=== PATIENT | female | born 1985 | race Caucasian/White ===

== ENCOUNTER 2017-05-06 07:57 | Emergency (ER) | payer OTHER ==
[2017-05-06] MEDS ORDERED: SODIUM CHLORIDE 0.9% 1,000 ML IV ONE (08:30)
[2017-05-06] MEDS ORDERED: ONDANSETRON 4 MG/2 ML VIAL IVP STA (08:30)
--- NOTE | 2017-05-06 08:33 | ED Physician Documentation ---
PD HPI NVD - Stated complaint Stated Complaint: DEHYDRATED/17WKS - Chief complaint Chief Complaint: Abd Pain - History obtained from History obtained from: Patient - History of Present Illness Timing - onset: How many days ago (2) Timing - details: Still present Associated symptoms: No: Fever, Abdominal pain, Dysuria, Vaginal bleeding Contributing factors: Sick contact (Son with similar symptoms earlier in the week.) Similar symptoms before: Has not had sx before - Treatment prior to arrival Treatment prior to arrival: Vomits after taking oral Zofran. - Additonal information Additional information: The patient is a 32-year-old female currently at 17 weeks gestation, who presents with vomiting of 2 days duration. She last vomited about 2 hours prior to arrival. She is concerned about dehydration because she has noticed decreased urine output. She denies fever, cough, shortness of breath, abdominal pain, diarrhea, or dysuria. She denies vaginal bleeding. She denies history of similar symptoms in the past. Her son was sick with similar symptoms earlier in the week. Review of Systems Constitutional: denies: Fever Ears: denies: Tinnitus/ringing Nose: denies: Congestion Throat: denies: Sore throat Cardiac: denies: Chest pain / pressure Respiratory: denies: Dyspnea, Cough GI: reports: Nausea, Vomiting. denies: Abdominal Pain, Diarrhea : reports: Now EGA (Currently at 17 weeks gestation.). denies: Dysuria, Vaginal bleeding Skin: denies: Rash Musculoskeletal: denies: Back pain Neurologic: denies: Focal weakness, Numbness, Headache PD PAST MEDICAL HISTORY - Past Medical History Endocrine/Autoimmune: None - Present Medications Home Medications: Ambulatory Orders Medication Instructions Recorded Confirmed Calcium Carbonate [Tums (Calcium 05/06/17 Carbonate 500mg)] Pnv No.122/Iron/Folic Acid 05/06/17 [ Multi Tablet] Promethazine [Phenergan] 25 - 50 mg PO Q6H PRN #10 tab 05/06/17 - Allergies Allergies/Adverse Reactions: Allergies Allergy/AdvReac Type Severity Reaction Status Date / Time fish derived Allergy Anaphylaxis Verified 05/06/17 08:41 shellfish derived Allergy Anaphylaxis Verified 05/06/17 08:41 - Social History Does the pt smoke?: No PD ED PE NORMAL - Vitals Vital signs reviewed: Yes (Normal) - General General: Alert and oriented X 3, Well developed/nourished - HEENT HEENT: Atraumatic, EOMI, Moist mucous membranes, Pharynx benign - Neck Neck: Supple, no meningeal sign, No adenopathy - Cardiac Cardiac: RRR, No murmur - Respiratory Respiratory: No respiratory distress, Clear bilaterally - Abdomen Abdomen: Soft, Non tender, Other (Gravid uterus, consistent with dates. FHR 154. ) - Back Back: No CVA TTP - Derm Derm: No rash - Extremities Extremities: No edema, No calf tenderness / cord - Neuro Neuro: Alert and oriented X 3, No motor deficit, No sensory deficit Results - Vitals Vitals: Vital Signs - 24 hr 05/06/17 11:04 Temperature 37.1 C Heart Rate 91 Respiratory 16 Rate Blood Pressure 107/62 O2 Saturation 100 Oxygen O2 Source Room air - Labs Labs: Laboratory Tests 05/06/17 09:05 Urine Color DARK YELLOW Urine Clarity HAZY Urine pH 6.0 Ur Specific Gregory 1.025 Urine Protein TRACE Urine Glucose (UA) NEGATIVE Urine Ketones NEGATIVE Urine Occult Blood TRACE-INTA Urine Nitrite NEGATIVE Urine Bilirubin NEGATIVE Urine Urobilinogen 0.2 (NORMAL) Ur Leukocyte Esterase NEGATIVE Urine RBC 0-5 Urine WBC 4-5 Ur Squamous Epith Cells MANY Squamous H Urine Bacteria Many H Urine Mucus Marked Strands Ur Microscopic Review INDICATED Urine Culture Comments NOT INDICATED PD MEDICAL DECISION MAKING - ED course Complexity details: reviewed results, re-evaluated patient, considered differential, d/w patient ED course: The patient's presentation is significant for vomiting with mild dehydration, most likely caused by viral illness. In addition she is currently in her second trimester, at 17 weeks gestation. Her gastrointestinal symptoms are similar to those that her son had earlier in the week. Urinalysis is negative for UTI, and heart tones are normal. Treatment in the emergency department included administration of normal saline 1 L IV, and Zofran 4 mg IV. The patient felt subjectively much improved after the above treatment, and had no further nausea or vomiting. She is being discharged with a prescription for Phenergan. I discussed with her the expected course of illness, symptomatic treatment and outpatient follow-up, as well as potentially worrisome signs or symptoms that should prompt reevaluation in the emergency department. Departure - Departure Disposition: 01 Home, Self Care Clinical Impression: Vomiting Qualifiers: Vomiting type: unspecified Vomiting Intractability: non-intractable Nausea presence: with nausea Qualified Code(s): R11.2 - Nausea with vomiting, unspecified Qualifiers: Weeks of gestation: 17 weeks Qualified Code(s): Z3A.17 - 17 weeks gestation of Condition: Stable Instructions: ED Nausea Vomiting Follow-Up: JOELLE TA [Primary Care Provider] - Prescriptions: Promethazine [Phenergan] 25 - 50 mg PO Q6H PRN #10 tab PRN Reason: Nausea / Vomiting Comments: Drink plenty of fluids. You can use Phenergan as prescribed if needed for nausea. Follow up with your primary physician or your mortician helper as planned. Return to the emergency department if you develop increasing abdominal pain, persistent vomiting, recurrent dehydration, or otherwise worsening symptoms. Discharge Date/Time: 05/06/17 11:03
[2017-05-06 09:21] LABS: BILIRUBIN,URINE NEGATIVE (NEGATIVE); GLUCOSE, URINE (UA) NEGATIVE (NEGATIVE); KETONES,URINE (UA) NEGATIVE (NEGATIVE); LEUKOCYTE ESTERASE, URINE NEGATIVE (NEGATIVE); NITRITE,URINE NEGATIVE (NEGATIVE); OCCULT BLOOD,URINE TRACE-INTA (NEGATIVE); PROTEIN,URINE TRACE mg/dL (NEGATIVE); UROBILINOGEN,URINE 0.2 (NORMAL) E.U./dL (NORMAL)
[2017-05-06 09:22] LABS: CLARITY,URINE HAZY (CLEAR)
[2017-05-06 09:32] LABS: BACTERIA,URINE Many /HPF (None Seen); MUCUS,URINE Marked Strands; RBC,URINE 0-5 /HPF (0-5); SQUAMOUS EPITHELIAL CELL,UR MANY Squamous (<= Few)
[2017-05-06 11:05] VITALS: BP 107/62
== END 2017-05-06 11:03 | disposition home or self-care (01) ==
LOC: ED 07:57
DX: O21.9 Vomiting of pregnancy, unspecified (principal); Z3A.17 17 weeks gestation of pregnancy
CPT/HCPCS: 81001; 81003; 87086; 96361; 96374; 99283